=== PATIENT | female | born 1985 | race Caucasian/White ===

== ENCOUNTER → 2016-12-06 | Outpatient (CLI) | payer OTHER | LOC: MRI 12:30 | DX: H46.9 Unspecified optic neuritis (principal) | CPT/HCPCS: 70553; A9577 ==

== ENCOUNTER → 2016-12-06 | Outpatient (CLI) | payer OTHER | LOC: LAB 07:53 | DX: Z13.89 Encounter for screening for other disorder (principal) | CPT/HCPCS: 36415; 82565; 84520 ==

== ENCOUNTER 2020-12-11 03:18 | Emergency (ER) | payer OTHER ==
[~2020-12-11 03:18] MED LIST: ABILIFY 5 MG TAB5 MG PO; BENTYL 10MG CAP10 MG PO; CELEXA40 MG PO; CIPRO500 MG PO; COLCHICINE 0.60.6 MG PO; CYCLOBENZAPRINE10 MG PO; DOXYCYCLINE HY100 MG PO; ERYTHROMYCIN O3.5 GM OD; FLEXERIL 10 MG10 MG PO; JANUVIA100 MG PO; KEFLEX500 MG PO; KENALOG OINT 0.15 GM TOP; LODINE CAP 300300 MG PO; METHIMAZOLE10 MG PO; MICROZIDE12.5 MG PO; MIRALAX17 GM PO; NAPROXEN 250 M250 MG PO; NEXIUM20 MG PO; ONDANSETRON HCL4 MG PO; PHENERGAN 25 MG25 M1 PO; PROPRANOLOL HCL10 MG PO; TYLENOL WITH C1 EACH PO; VICTOZA 1818 MG/3 ML SC; VISTARIL25 MG PO; ZOFRAN ODT 4 MG4 MG SL; ZOFRAN4 MG PO; ZYLOPRIM 100 M100 MG PO
[2020-12-11] MEDS ORDERED: ACID-PEP20 MG PO (05:26)
[2020-12-11] MEDS ORDERED: PREDNISONE50 MG PO (05:26)
== END 2020-12-11 05:43 | disposition home or self-care (01) ==
LOC: ER1 03:18
DX: T78.40XA Allergy, unspecified, initial encounter (principal); R21 Rash and other nonspecific skin eruption; E11.9 Type 2 diabetes mellitus without complications; Z88.0 Allergy status to penicillin; Z90.710 Acquired absence of both cervix and uterus
CPT/HCPCS: 99283

== ENCOUNTER → 2020-12-27 | Outpatient (CLI) | payer OTHER ==
[~2020-12-27] MED LIST changes: +ACID-PEP20 MG PO; +PREDNISONE50 MG PO
== END ==
LOC: EXRD 08:53
DX: R10.9 Unspecified abdominal pain (principal); R59.1 Generalized enlarged lymph nodes
CPT/HCPCS: 76536; 76700

== ENCOUNTER 2021-06-12 15:52 | Emergency (ER) | payer OTHER | END 2021-06-12 17:49 | disposition home or self-care (01) | LOC: ER1 15:52 | DX: S06.0X0A Concussion without loss of consciousness, initial encounter (principal); E11.9 Type 2 diabetes mellitus without complications; W19.XXXA Unspecified fall, initial encounter | CPT/HCPCS: 70450; 70486; 99283 ==

== ENCOUNTER → 2021-07-07 | Outpatient (CLI) | payer OTHER | LOC: KOH-I 13:30 | DX: R59.0 Localized enlarged lymph nodes (principal) | CPT/HCPCS: 76536 ==

== ENCOUNTER 2021-09-20 19:00 | Emergency (ER) | payer OTHER ==
[2021-09-20 20:28] LABS: HEMOGLOBIN 13.1 gm/dl (12.3-15.3); RED BLOOD COUNT 4.26 M/UL (4.00-5.10); WHITE BLOOD COUNT 5.4 K/UL (4.5-11.0)
[2021-09-20 21:04] LABS: BUN/CREATININE RATIO 17 (0-10)
[2021-09-20] MEDS ORDERED: CEFUROXIME500 MG PO (21:34)
== END 2021-09-20 21:50 | disposition home or self-care (01) ==
LOC: ER1 19:00
PROVIDERS: Physician Assistant
DX: N83.202 Unspecified ovarian cyst, left side (principal); N39.0 Urinary tract infection, site not specified; Z20.822 Contact with and (suspected) exposure to COVID-19; Z90.710 Acquired absence of both cervix and uterus; Z88.0 Allergy status to penicillin; E11.9 Type 2 diabetes mellitus without complications; R19.7 Diarrhea, unspecified
CPT/HCPCS: 80053; 81001; 83690; 85025; 87086; 96374; 99284; J1885; U0002

== ENCOUNTER → 2021-10-11 | Outpatient (CLI) | payer OTHER ==
[~2021-10-11] MED LIST changes: +CEFUROXIME500 MG PO
[2021-10-11 12:28] LABS: RED BLOOD COUNT 4.5 M/UL (4.00-5.10)
[2021-10-11 12:47] LABS: BUN/CREATININE RATIO 11 (0-10)
== END ==
LOC: LAB 11:03
PROVIDERS: Obstetrics & Gynecology
DX: R30.0 Dysuria (principal)
CPT/HCPCS: 36415; 80053; 85025